=== PATIENT | male | born 1965 | race Caucasian/White ===

== ENCOUNTER 2018-05-16 09:56 | Inpatient (IN) | payer OTHER ==
[2018-05-16 10:54] VITALS: BMI 18.2
--- NOTE | 2018-05-16 13:55 | HP ---
CIWA Score - CIWA Score Nausea/Vomitin Muscle Tremors: 3 Anxiety: 3 Agitation: 3 Paroxysmal Sweats: 1-Minimal Palms Moist Orientation: 0-Oriented Tacttile Disturbances: 1-Very Mild Itch/Numbness Auditory Disturbances: 1-Very Mild Visual Disturbances: 0-None Headache: 2-Mild CIWA-Ar Total Score: 17 Admission ROS BHS - HPI Chief Complaint: Vital Signs Temperature 98.5 F 05/16/18 10:51 Pulse Rate 91 H 05/16/18 10:51 Respiratory Rate 19 05/16/18 10:51 Blood Pressure 117/72 05/16/18 10:51 O2 Sat by Pulse Oximetry (%) Allergies/Adverse Reactions: Allergies Allergy/AdvReac Type Severity Reaction Status Date / Time No Known Drug Allergies Allergy Verified 05/16/18 11:10 seafood Allergy Mild Hives Uncoded 05/16/18 11:10 - Ebola screening Have you traveled outside of the country in the last 21 days: No Have you had contact with anyone from an Ebola affected area: No Have you been sick,other than usual withdrawal symptoms: No Do you have a fever: No Patient History - Patient Medical History Hx Anemia: No Hx Asthma: Yes (Pt is on MDI) Hx Chronic Obstructive Pulmonary Disease (COPD): No Hx Cancer: No Hx Cardiac Disorders: No Hx Congestive Heart Failure: No Hx Hypertension: No Hx Hypercholesterolemia: No Hx Pacemaker: No HX Cerebrovascular Accident: No Hx Seizures: No Hx Dementia: No Hx Diabetes: No Hx Gastrointestinal Disorders: No Hx Liver Disease: No Hx Genitourinary Disorders: No Hx Sexually Transmitted Disorders: No Hx Renal Disease (ESRD): No Hx Thyroid Disease: No Hx Human Immunodeficiency Virus (HIV): No (DID NOT WANT TO BE TESTED,never been tested) Hx Hepatitis C: No Hx Depression: Yes (anxiety) Hx Suicide Attempt: No Hx Bipolar Disorder: No Hx Schizophrenia: No - Patient Surgical History Past Surgical History: Yes Hx Neurologic Surgery: No Hx Cataract Extraction: No Hx Cardiac Surgery: No Hx Lung Surgery: No Hx Breast Surgery: No Hx Breast Biopsy: No Hx Abdominal Surgery: No Hx Appendectomy: No Hx Cholecystectomy: No Hx Genitourinary Surgery: No Hx Section: No Hx Orthopedic Surgery: Yes (right forearm and elbow at age 14 yrs old.) Other Surgical History: Pt had a cyst removed from under L eye. Anesthesia Reaction: No - PPD History Previous Implant?: Yes Documented Results: Negative w/o proof Implanted On Prior [facility] Admission?: Yes Date: 04/11/15 Results: 0 mm - Smoking Cessation Smoking history: Current every day smoker Have you smoked in the past 12 months: Yes Aproximately how many cigarettes per day: 20 Cigars Per Day: 0 Hx Chewing Tobacco Use: No Initiated information on smoking cessation: Yes - Substances Abused Alcohol Route: Oral Frequency: Daily Amount used: 1/2 PINT VODKA/ 3 BEERS Age of first use: 22 Date of Last Use: 05/16/18 Marijuana/Hashish Route: Smoking Frequency: Daily Amount used: 1-2 HITS FROM JOINT Age of first use: 16 Date of Last Use: 05/02/18 Family Disease History - Family Disease History Family Disease History: Diabetes: Mother (htn,), Heart Disease: Mother, Respiratory: Father (copd,) Admission Physical Exam S - Vital Signs Vital Signs: Vital Signs - 24 hr 05/16/18 10:51 Temperature 98.5 F Pulse Rate 91 H Respiratory 19 Rate Blood Pressure 117/72 - Physical General Appearance: Yes: Moderate Distress, Tremorous, Irritable, Sweating, Anxious HEENTM: Yes: Normal ENT Inspection, Pharynx Normal, Other (sty of right eye right upper eyelid ear wax left scar of left face) Respiratory: Yes: Lungs Clear, Normal Breath Sounds, No Respiratory Distress Neck: Yes: Within Normal Limits, Supple, Trachea in good position Breast: Yes: Breast Exam Deferred Cardiology: Yes: Regular Rhythm, Regular Rate, S1, S2 Abdominal: Yes: Within Normal Limits, Normal Bowel Sounds, Non Tender, Flat, Soft Genitourinary: Yes: Within Normal Limits Musculoskeletal: Yes: full range of Motion, Back pain, Muscle Pain Extremities: Yes: Within Normal Limits, Normal Range of Motion, Tremors Neurological: Yes: applications analyst II-XII NML intact, Alert, Motor Strength 5/5 Integumentary: Yes: Dry Lymphatic: Yes: Within Normal Limits - Diagnostic (1) Alcohol dependence with uncomplicated withdrawal Current Visit: No Status: Acute (2) Alcohol dependence with uncomplicated intoxication Current Visit: No Status: Acute (3) Weight loss Current Visit: No Status: Acute (4) s/p surgery of right elbow for fx at age of 14 years with li Current Visit: No Status: Active (5) Nicotine dependence Current Visit: No Status: Acute (6) Asthma Current Visit: No Status: Chronic (7) Syncope Current Visit: No Status: Chronic (8) Sty Current Visit: Yes Status: Acute Cleared for Admission S - Detox or Rehab [facility] Level of Care: Medically Managed Detox Regimen/Protocol: Librium BHS Breath Alcohol Content Breath Alcohol Content: 0.100 Urine Drug Screen - Results Drug Screen Negative: No Urine Drug Screen Results: THC-Marijuana
[2018-05-16] MEDS ORDERED: ACETAMINOPHEN 325 MG TABLET (FP) PO PRN (13:56)
[2018-05-16] MEDS ORDERED: hydrOXYzine PAMOATE 25 MG CAPSULE (FP) PO PRN (13:56)
[2018-05-16] MEDS ORDERED: IBUPROFEN 400 MG TABLET (FP) PO PRN (13:56)
[2018-05-16] MEDS ORDERED: MENTHOL/PHENOL 1 EACH UD MM PRN (13:56)
[2018-05-16] MEDS ORDERED: chlordiazePOXIDE HCL 25 MG CAPSULE PO PRN (13:56)
[2018-05-16] MEDS ORDERED: MAGNESIUM HYDROX 2400MG/30ML ORAL SUSPENSION 30 ML CUP PO PRN (13:56)
[2018-05-16] MEDS ORDERED: guaiFENesin/D-METHORPHAN HB 10 ML UNIT-DOSE CUPS PO PRN (13:56)
[2018-05-16] MEDS ORDERED: LOPERAMIDE HCL 2 MG CAPSULE PO PRN (13:56)
[2018-05-16] MEDS ORDERED: MAGNESIUM CITRATE 300 ML BOTTLE PO PRN (13:56)
[2018-05-16] MEDS ORDERED: MAG HYDROX/AL HYDROX/SIMETH 30 ML UNIT-DOSE CUP PO PRN (13:56)
[2018-05-16] MEDS ORDERED: P-EPHED 60MG/TRIPROLIDI 2.5MG TABLET PO PRN (13:56)
[2018-05-16] MEDS ORDERED: IBUPROFEN 600 MG TABLET (FP) PO PRN (14:02)
[2018-05-16] MEDS: NICOTINE 21 MG/24 HOURS TOPICAL PATCH TD SCH (15:04)
[2018-05-16] MEDS: NICOTINE POLACRILEX 2 MG GUM BUC PRN ×2 (15:08→17:34)
--- NOTE | 2018-05-16 15:33 | EKG ---
Test Reason : Blood Pressure : / mmHG Vent. Rate : 088 BPM Atrial Rate : 088 BPM P-R Int : 120 ms QRS Dur : 082 ms QT Int : 362 ms P-R-T Axes : 059 -04 061 degrees QTc Int : 438 ms NORMAL SINUS RHYTHM POSSIBLE LEFT ATRIAL ENLARGEMENT BORDERLINE ECG NO PREVIOUS ECGS AVAILABLE Confirmed by RANDI MUSTAFA, CLARITZA ([id number]) on 05/16/2018 3:33:03 PM Referred By: Confirmed By:CLARITZA BRYAN MD
[2018-05-16] MEDS: chlordiazePOXIDE HCL 25 MG CAPSULE PO SCH ×2 (17:33→22:20)
[2018-05-16 19:03] LABS: URINE APPEARANCE CLEAR; URINE COLOR AMBER; URINE GLUCOSE (UA) NEGATIVE (NEGATIVE); URINE KETONE TRACE (NEGATIVE); URINE LEUK ESTERASE NEGATIVE (NEGATIVE); URINE NITRITE NEGATIVE (NEGATIVE)
[2018-05-16 19:08] LABS: URINE PROTEIN 1+ (NEGATIVE)
[2018-05-16 19:36] LABS: EPI CELLS RARE /HPF (FEW); URINE HYALINE CAST 4 /lpf; URINE MUCUS RARE
[2018-05-16] MEDS ORDERED: MELATONIN 5 MG TABLETS PO PRN (22:00)
[2018-05-16] MEDS: THIAMINE HCL 100 MG TABLET (FP) PO SCH (22:20)
[2018-05-16] MEDS: CARBAMIDE PEROXIDE 6.5% OTIC 15 ML BOTTLE AS SCH (22:22)
[2018-05-17] MEDS: chlordiazePOXIDE HCL 25 MG CAPSULE PO SCH ×4 (05:24→22:13)
[2018-05-17] MEDS: NICOTINE 21 MG/24 HOURS TOPICAL PATCH TD SCH (10:19)
[2018-05-17] MEDS: PRENATAL VITAMINS W/ FOLIC ACID TABLET (FP) PO SCH (10:19)
[2018-05-17] MEDS: CARBAMIDE PEROXIDE 6.5% OTIC 15 ML BOTTLE AS SCH ×2 (10:19→22:17)
[2018-05-17] MEDS: NICOTINE POLACRILEX 2 MG GUM BUC PRN ×2 (10:21→20:40)
[2018-05-17] MEDS ORDERED: NAPROXEN 375 MG TABLET (FP) PO ONE (11:43)
--- NOTE | 2018-05-17 13:22 | PN ---
[facility] CIWA - CIWA Score Nausea/Vomitin-No Nausea/No Vomiting Muscle Tremors: None Anxiety: 4-Mod. Anxious/Guarded Agitation: 4-Moderately Restless Paroxysmal Sweats: No Perspiration Orientation: 0-Oriented Tacttile Disturbances: 3-Moderate Itch/Numb/Burn Auditory Disturbances: 1-Very Mild Visual Disturbances: 3-Moderate Sensitivity Headache: 0-None Present CIWA-Ar Total Score: 15 S Progress Note (SOAP) Subjective: Interrupted Sleep, Fatigue, Body Aches. Objective: PATIENT A & O X 3, OBSERVED AMBULATING ON UNIT. NO ACUTE DISTRESS. 05/17/18 13:19 Vital Signs Temperature 99.5 F 05/17/18 09:50 Pulse Rate 84 05/17/18 09:50 Respiratory Rate 16 05/17/18 09:50 Blood Pressure 110/73 05/17/18 09:50 O2 Sat by Pulse Oximetry (%) Laboratory Tests 05/16/18 14:30 Urine Color Meg Urine Appearance Clear Urine pH 5.0 Ur Specific [place] 1.026 Urine Protein 1+ H Urine Glucose (UA) Negative Urine Ketones Trace H Urine Blood Negative Urine Nitrite Negative Urine Bilirubin 2.0 Urine Urobilinogen 2.0 Ur Leukocyte Esterase Negative Urine WBC (Auto) 5 Urine RBC (Auto) 1 Ur Epithelial Cells Rare Hyaline Casts 4 Urine Mucus Rare UA RESULTS NOTED. OTHER LAB RESULTS PENDING. 05/17/18 13:20 Assessment: 05/17/18 13:21 WITHDRAWAL SYMPTOMS. Plan: CONTINUE DETOX. INCREASE DAILY PO FLUID INTAKE. NAPROXEN BID FOR BODY ACHES.
--- NOTE | 2018-05-17 19:02 | CONSULT ---
[facility] Psychiatric Consult - Data Date of interview: 05/17/18 Admission source: [facility]
[2018-05-17] MEDS: THIAMINE HCL 100 MG TABLET (FP) PO SCH (22:13)
[2018-05-17] MEDS: ZOLPIDEM TARTRATE 5 MG TABLET PO PRN (22:13)
[2018-05-17] MEDS: NAPROXEN 375 MG TABLET (FP) PO SCH (22:14)
[2018-05-18] MEDS: chlordiazePOXIDE HCL 25 MG CAPSULE PO SCH ×2 (05:22→10:15)
[2018-05-18] MEDS: CARBAMIDE PEROXIDE 6.5% OTIC 15 ML BOTTLE AS SCH ×2 (10:14→22:34)
[2018-05-18] MEDS: NAPROXEN 375 MG TABLET (FP) PO SCH ×2 (10:14→22:33)
[2018-05-18] MEDS: PRENATAL VITAMINS W/ FOLIC ACID TABLET (FP) PO SCH (10:14)
[2018-05-18] MEDS: NICOTINE 21 MG/24 HOURS TOPICAL PATCH TD SCH (10:14)
[2018-05-18] MEDS: NICOTINE POLACRILEX 2 MG GUM BUC PRN ×4 (10:15→22:34)
--- NOTE | 2018-05-18 17:12 | PN ---
[facility] CIWA - CIWA Score Nausea/Vomitin-No Nausea/No Vomiting Muscle Tremors: None Anxiety: 4-Mod. Anxious/Guarded Agitation: 4-Moderately Restless Paroxysmal Sweats: 2 Orientation: 0-Oriented Tacttile Disturbances: 2-Mild Itch/Numbness/Burn Auditory Disturbances: 0-None Visual Disturbances: 2-Mild Sensitivity Headache: 0-None Present CIWA-Ar Total Score: 14 S Progress Note (SOAP) Subjective: Interrupted Sleep, Sweating, Anxious, Body Aches. Objective: PATIENT A & O X 3, OBSERVED AMBULATING ON UNIT. NO ACUTE DISTRESS. 05/18/18 17:15 Laboratory Tests 05/16/18 14:30 Urine Color Meg Urine Appearance Clear Urine pH 5.0 Ur Specific [place] 1.026 Urine Protein 1+ H Urine Glucose (UA) Negative Urine Ketones Trace H Urine Blood Negative Urine Nitrite Negative Urine Bilirubin 2.0 Urine Urobilinogen 2.0 Ur Leukocyte Esterase Negative Urine WBC (Auto) 5 Urine RBC (Auto) 1 Ur Epithelial Cells Rare Hyaline Casts 4 Urine Mucus Rare ADMISSION LAB RESULTS, UA RESULTS NOTED. Assessment: 05/18/18 17:15 WITHDRAWAL SYMPTOMS. LEUKOCYSTOSIS. Plan: [id number] DETOX. INCREASE DAILY P O FLUID INTAKE. REPEAT CBC TOMORROW AM FOR ELEVATED ADMISSION WBC LEVEL.
[2018-05-18] MEDS: chlordiazePOXIDE 5 MG CAPSULE PO SCH ×2 (18:14→22:33)
[2018-05-18] MEDS: ALBUTEROL SO4 8 GM HFA INHALER IH PRN (18:15)
--- NOTE | 2018-05-18 19:39 | CONSULT ---
[facility] Psychiatric Consult - Data Date of interview: 05/18/18 Admission source: [facility] Identifying data: Readmission to [facility] for this 53 y/o male seeking detox treatment on for alcohol and cannabis dependence.Patient is single,a father of one,domiciled,unemployed and supported on Public Assistance. Substance Abuse History: moking history: Current every day smoker. Have you smoked in the past 12 months: Yes. Aproximately how many cigarettes per day: 20. Cigars Per Day: 0. Hx Chewing Tobacco Use: No. Initiated information on smoking cessation: Yes. - Substances Abused. Alcohol. Route: Oral. Frequency: Daily. Amount used: 1/2 PINT VODKA/ 3 BEERS. Age of first use: 22. Date of Last Use: 05/16/18. Marijuana/Hashish. Route: Smoking. Frequency : Daily. Amount used: 1-2 HITS FROM JOINT. Age of first use: 16. Date of Last Use: 05/02/18 Additional Comment: Urine Drug Screen Results: THC-Marijuana.Noted.
[2018-05-18] MEDS: THIAMINE HCL 100 MG TABLET (FP) PO SCH (22:33)
[2018-05-18] MEDS: ZOLPIDEM TARTRATE 5 MG TABLET PO PRN (22:33)
[2018-05-19] MEDS: chlordiazePOXIDE 5 MG CAPSULE PO SCH ×2 (06:36→10:26)
[2018-05-19 10:20] LABS: BASO % 0.7 % (0-2.0); EOS % 2.8 % (0-4.5); HEMATOCRIT 37.7 % (35.4-49); HEMOGLOBIN 12.8 GM/dL (11.7-16.9); LYMPH % 16.6 % (8-40); MCH 30.6 pg (25.7-33.7); MCHC 33.9 g/dl (32.0-35.9); MEAN CELL VOLUME 90.3 fl (80-96); MEAN PLT VOLUME 7.5 fl (7.5-11.1); NEUT % 68.9 % (42.8-82.8); PLATELET COUNT 449 K/MM3 (134-434); RBC 4.17 M/mm3 (4.00-5.60); RDW 14.7 % (11.9-15.9); WHITE BLOOD COUNT 16.3 K/mm3 (4.0-10.0)
[2018-05-19] MEDS: NAPROXEN 375 MG TABLET (FP) PO SCH ×2 (10:25→22:09)
[2018-05-19] MEDS: NICOTINE 21 MG/24 HOURS TOPICAL PATCH TD SCH (10:26)
[2018-05-19] MEDS: NICOTINE POLACRILEX 2 MG GUM BUC PRN ×2 (10:26→16:53)
[2018-05-19] MEDS: PRENATAL VITAMINS W/ FOLIC ACID TABLET (FP) PO SCH (10:26)
[2018-05-19] MEDS: CARBAMIDE PEROXIDE 6.5% OTIC 15 ML BOTTLE AS SCH ×2 (10:26→22:09)
--- NOTE | 2018-05-19 14:38 | PN ---
S Progress Note (SOAP) Subjective: Interrupted sleep, anxious, sweating Objective: 05/19/18 14:36 Last Vital Signs Temp Pulse Resp BP Pulse Ox 98.9 F 81 18 108/71 05/19/18 10:38 05/19/18 10:38 05/19/18 10:38 05/19/18 10:38 Laboratory Tests 05/16/18 05/19/18 14:30 07:40 WBC 16.3 H RBC 4.17 Hgb 12.8 Hct 37.7 MCV 90.3 MCH 30.6 MCHC 33.9 RDW 14.7 Plt Count 449 H MPV 7.5 Absolute Neuts (auto) 11.3 Neutrophils % 68.9 Lymphocytes % 16.6 Monocytes % 11.0 H Eosinophils % 2.8 Basophils % 0.7 Nucleated RBC % 0 Urine Color Meg Urine Appearance Clear Urine pH 5.0 Ur Specific [place] 1.026 Urine Protein 1+ H Urine Glucose (UA) Negative Urine Ketones Trace H Urine Blood Negative Urine Nitrite Negative Urine Bilirubin 2.0 Urine Urobilinogen 2.0 Ur Leukocyte Esterase Negative Urine WBC (Auto) 5 Urine RBC (Auto) 1 Ur Epithelial Cells Rare Hyaline Casts 4 Urine Mucus Rare Labs reviewed: wbc 16.3 (was previously 24.0, trending downwards) Assessment: 05/19/18 14:37 Withdrawal symptoms Noted with leukocytosis Plan: Continue detox Leukocytosis: trending downward, asymptomatic for infection, continue to monitor
[2018-05-19] MEDS: chlordiazePOXIDE HCL 10 MG CAPSULE PO SCH ×2 (18:01→22:09)
[2018-05-19] MEDS: THIAMINE HCL 100 MG TABLET (FP) PO SCH (22:09)
[2018-05-19] MEDS: ZOLPIDEM TARTRATE 5 MG TABLET PO PRN (22:09)
[2018-05-19] MEDS: ALBUTEROL SO4 8 GM HFA INHALER IH PRN (22:11)
[2018-05-20] MEDS: chlordiazePOXIDE HCL 10 MG CAPSULE PO SCH ×2 (07:12→10:35)
[2018-05-20 09:16] VITALS: BP 120/77; PULSE 100; TEMP 97.6
[2018-05-20] MEDS: NAPROXEN 375 MG TABLET (FP) PO SCH (10:32)
[2018-05-20] MEDS: CARBAMIDE PEROXIDE 6.5% OTIC 15 ML BOTTLE AS SCH (10:33)
[2018-05-20] MEDS: PRENATAL VITAMINS W/ FOLIC ACID TABLET (FP) PO SCH (10:34)
[2018-05-20] MEDS: NICOTINE 21 MG/24 HOURS TOPICAL PATCH TD SCH (10:54)
--- NOTE | 2018-05-20 12:41 | PN ---
[facility] Progress Note (SOAP) Subjective: DETOX COMPLETED. REFERRED TO REHAB [facility] TODAY. PT STATES HE HAS PRIMARY CARE AT [facility] [address], [place]. Objective: 05/20/18 12:41 Vital Signs 05/20/18 05/20/18 06:31 09:16 Temperature 98.2 F 97.6 F Pulse Rate 76 100 H Respiratory 18 20 Rate Blood Pressure 109/70 120/77 Laboratory Tests 05/16/18 05/19/18 14:30 07:40 WBC 16.3 H RBC 4.17 Hgb 12.8 Hct 37.7 MCV 90.3 MCH 30.6 MCHC 33.9 RDW 14.7 Plt Count 449 H MPV 7.5 Absolute Neuts (auto) 11.3 Neutrophils % 68.9 Lymphocytes % 16.6 Monocytes % 11.0 H Eosinophils % 2.8 Basophils % 0.7 Nucleated RBC % 0 Urine Color Meg Urine Appearance Clear Urine pH 5.0 Ur Specific [place] 1.026 Urine Protein 1+ H Urine Glucose (UA) Negative Urine Ketones Trace H Urine Blood Negative Urine Nitrite Negative Urine Bilirubin 2.0 Urine Urobilinogen 2.0 Ur Leukocyte Esterase Negative Urine WBC (Auto) 5 Urine RBC (Auto) 1 Ur Epithelial Cells Rare Hyaline Casts 4 Urine Mucus Rare Assessment: 05/20/18 12:41 MEDICALLY STABLE Plan: D/C PT TODAY
--- NOTE | 2018-05-20 12:44 | DS ---
[facility] Detox Discharge Summary Admission Date: 05/16/18 Discharge Date: 05/20/18 - History Present History: Alcohol Dependence Additional Comments: DETOX COMPLETED. ALERT O X 3. NAD. Pertinent Past History: PLEASE SEE DX BELOW - Physical Exam Results Vital Signs: Vital Signs Temperature 97.6 F 05/20/18 09:16 Pulse Rate 100 H 05/20/18 09:16 Respiratory Rate 20 05/20/18 09:16 Blood Pressure 120/77 05/20/18 09:16 O2 Sat by Pulse Oximetry (%) Pertinent Admission Physical Exam Findings: WITHDRAWAL SX Laboratory Tests 05/16/18 05/19/18 14:30 07:40 WBC 16.3 H RBC 4.17 Hgb 12.8 Hct 37.7 MCV 90.3 MCH 30.6 MCHC 33.9 RDW 14.7 Plt Count 449 H MPV 7.5 Absolute Neuts (auto) 11.3 Neutrophils % 68.9 Lymphocytes % 16.6 Monocytes % 11.0 H Eosinophils % 2.8 Basophils % 0.7 Nucleated RBC % 0 Urine Color Meg Urine Appearance Clear Urine pH 5.0 Ur Specific [place] 1.026 Urine Protein 1+ H Urine Glucose (UA) Negative Urine Ketones Trace H Urine Blood Negative Urine Nitrite Negative Urine Bilirubin 2.0 Urine Urobilinogen 2.0 Ur Leukocyte Esterase Negative Urine WBC (Auto) 5 Urine RBC (Auto) 1 Ur Epithelial Cells Rare Hyaline Casts 4 Urine Mucus Rare - Treatment Hospital Course: Detox Protocol Followed, Detoxed Safely, Responded well, Discharged Condition Good, Rehab Referral Accepted Patient has Accepted a Rehab Referral to: [facility] [place] - [facility] Discharge Medications: Ambulatory Orders Albuterol Sulfate Inhaler - [Ventolin Hfa Inhaler -] 2 inh PO Q4H PRN 07/31/17 Ibuprofen [Motrin -] 600 mg PO Q6H PRN 05/16/18 - Diagnosis (1) Alcohol dependence with uncomplicated withdrawal Status: Acute (2) Asthma Status: Chronic (3) Nicotine dependence Status: Acute Qualifiers: Nicotine product type: cigarettes Substance use status: in withdrawal Qualified Code(s): F17.213 - Nicotine dependence, cigarettes, with withdrawal (4) Cannabis dependence Status: Acute (5) Weight loss Status: Acute (6) Body aches Status: Chronic - AMA Did Patient Leave Against Medical Advice: No
== END 2018-05-20 11:00 | disposition other institution (70) | DRG 775 ==
LOC: YASAS 09:56 → Y3N 13:44
PROVIDERS: ADMIT Surgery; ATTEND Surgery
PROC: HZ2ZZZZ Detoxification Services for Substance Abuse Treatment (ICD-10-PCS; principal; 2018-05-16)
DX: F10.230 Alcohol dependence with withdrawal, uncomplicated (principal); F10.220 Alcohol dependence with intoxication, uncomplicated; F12.20 Cannabis dependence, uncomplicated; F17.213 Nicotine dependence, cigarettes, with withdrawal; F41.8 Other specified anxiety disorders; J45.909 Unspecified asthma, uncomplicated; M79.1 Myalgia; D72.829 Elevated white blood cell count, unspecified; H00.029 Hordeolum internum unspecified eye, unspecified eyelid; Z91.013 Allergy to seafood; Z86.79 Personal history of other diseases of the circulatory system; Z87.898 Personal history of other specified conditions
CPT/HCPCS: 36415; 81003; 81015; 85025; 93005; 93010